=== PATIENT | female | born 2000 | race Caucasian/White ===

== ENCOUNTER 2019-06-02 11:10 | Emergency (ER) | payer MEDICAID ==
[~2019-06-02] VITALS: Ht 156.2 cm; Wt 68.9 kg
[2019-06-02 11:14] VITALS: BP 114/56
--- NOTE | 2019-06-02 11:19 | NUR ---
PT AMB TO BED 4 WITH STEADY GAIT
--- NOTE | 2019-06-02 11:30 | NUR ---
PT PRESENTS TO ED WITH C/O RIGHT SIDED FLANK 10/10 PAIN X 3 DAYS. DENIES INJURY/TRAUMA. DENIES DYSURIA, FEVER OR N/V/D. AFEBRILE AT THIS TIME. VSS. ERMD TO EVALUATE PT.
--- NOTE | 2019-06-02 11:50 | NUR ---
DR WIN AT BEDSIDE
[2019-06-02] MEDS ORDERED: HYDROcodone/APAP 5/325 MG 1 TAB TAB PO ONE (11:55)
[2019-06-02] MEDS ORDERED: KETOROLAC 30 MG/ML VIAL IM ONE (11:55)
[2019-06-02 12:11] LABS: APPEARANCE,URINE CLEAR (CLEAR); BILIRUBIN,URINE NEGATIVE (NEGATIVE); BLOOD, URINE NEGATIVE (NEGATIVE); COLOR,URINE YELLOW (YELLOW); LEUKOCYTE ESTERASE ,URINE NEGATIVE (NEGATIVE); NITRITE, URINE NEGATIVE (NEGATIVE); PH,URINE 7.5 (5.0-9.0); UGLUCOSE NEGATIVE (NEGATIVE)
[2019-06-02 12:55] VITALS: BP 113/79
--- NOTE | 2019-06-02 12:55 | NUR ---
Patient discharged with v/s stable. Written and verbal after care instructions given and explained. Patient alert, oriented and verbalized understanding of instructions. Ambulatory with steady gait. All questions addressed prior to discharge. ID band removed. Patient advised to follow up with PMD. Rx of IBUPROFEN, METHOCARBAMOL given. Patient educated on indication of medication including possible reaction and side effects. Opportunity to ask questions provided and answered. PT GIVEN EXCUSE FOR WORK.
== END 2019-06-02 12:55 | disposition home or self-care (01) ==
LOC: MED 11:10
DX: M54.5 Low back pain (principal)
CPT/HCPCS: 81003; 81025; 96372; 99283; J1885

== ENCOUNTER 2022-02-04 16:00 | Observation (INO) | payer OTHER, SELFPAY ==
[~2022-02-04] VITALS: Ht 157.5 cm; Wt 81.6 kg
[2022-02-04] MEDS ORDERED: cefTRIAXone 1,000 MG in LIDOCAINE MPF 1% 2.1 ML IM SCH (18:20)
[2022-02-04] MEDS ORDERED: PRETAB PO (18:45)
== END 2022-02-04 19:05 | disposition home or self-care (01) ==
LOC: MLD 16:00
PROVIDERS: ADMIT Obstetrics & Gynecology; ATTEND Obstetrics & Gynecology
DX: O26.893 Other specified pregnancy related conditions, third trimester (principal); R10.30 Lower abdominal pain, unspecified; Z20.822 Contact with and (suspected) exposure to COVID-19; Z3A.32 32 weeks gestation of pregnancy
CPT/HCPCS: 76817; 76819; 87426; 96372; G0378; J0696; J2001; Q0092; 59025; 81000

== ENCOUNTER 2022-02-15 20:50 | Observation (INO) | payer OTHER ==
[~2022-02-15] VITALS: Ht 157.5 cm; Wt 81.2 kg
[~2022-02-15 20:50] MED LIST: PRETAB PO
[2022-02-15] MEDS ORDERED: MORPHINE SULFATE 5 MG/ML VIAL IVP PRN (21:20)
[2022-02-15] MEDS ORDERED: ONDANSETRON 4 MG/2 ML VIAL IVP PRN (21:20)
[2022-02-15] MEDS ORDERED: LACTATED RINGERS 1,000 ML IV SCH ×2 (21:20)
[2022-02-15 21:42] LABS: BASOPHILS % (AUTO) 0.3 % (0.0-2.0); EOSINOPHILS # (AUTO) 0.1 K/uL (0-0.4); EOSINOPHILS % (AUTO) 0.9 % (0.0-4.0); HEMATOCRIT 37.2 % (36-48); HEMOGLOBIN 12.6 g/dL (12.0-16.0); LYMPHOCYTES # (AUTO) 2.4 K/uL (2.5-16.5); MEAN CORPUSCULAR HEMOGLOBIN 29 pg (27-31); MEAN CORPUSCULAR HGB CONC 34 g/dL (33-37); MEAN CORPUSCULAR VOLUME 86.7 fL (80-94); MONOCYTES # (AUTO) 0.8 K/uL (0.8-1.0); MONOCYTES % (AUTO) 7.5 % (1.7-9.3); NEUTROPHILS # (AUTO) 7.1 K/uL (1.8-7.7); NEUTROPHILS % (AUTO) 68.3 % (42.2-75.2); PLATELET COUNT (AUTO) 274 K/uL (140-450); RED BLOOD CELL COUNT(AUTO) 4.29 MIL/uL (4.20-5.40); RED CELL DISTRIBUTION WIDTH 15.1 % (11.6-13.7); WHITE BLOOD COUNT (AUTO) 10.3 K/uL (4.8-10.8)
[2022-02-15 21:59] VITALS: BP 113/70
[2022-02-15 22:05] LABS: ALBUMIN 2.5 g/dL (3.4-5.0); ASPARTATE AMINOTRANSFERASE 19 U/L (15-37); CARBON DIOXIDE 23.6 mmol/L (21-32); CHLORIDE 105 mmol/L (98-107); CREATININE 0.5 mg/dL (0.6-1.3); GFR ARICAN-AMERICAN 198 mL/min (>90); GLUCOSE 99 mg/dL (74-106); POTASSIUM 3.6 mmol/L (3.5-5.1); SODIUM SERUM 136 mmol/L (136-145); TOTAL BILIRUBIN 0.3 mg/dL (0.0-1.0); UREA NITROGEN, BLOOD 8 mg/dL (7-18)
[2022-02-15 22:24] LABS: APPEARANCE,URINE CLEAR (CLEAR); BILIRUBIN,URINE NEGATIVE (NEGATIVE); BLOOD, URINE NEGATIVE (NEGATIVE); COLOR,URINE YELLOW (YELLOW); LEUKOCYTE ESTERASE ,URINE 1+ (NEGATIVE); NITRITE, URINE NEGATIVE (NEGATIVE); UGLUCOSE NEGATIVE (NEGATIVE)
[2022-02-15 22:38] LABS: RBC,URINE 0-5 /HPF (0-5)
== END 2022-02-15 23:20 | disposition home or self-care (01) ==
LOC: MLD 20:50
PROVIDERS: ADMIT Obstetrics & Gynecology; ATTEND Obstetrics & Gynecology
DX: O62.9 Abnormality of forces of labor, unspecified (principal); Z3A.34 34 weeks gestation of pregnancy
CPT/HCPCS: 36415; 59025; 76805; 76817; 80053; 81001; 82731; 85025; 87086; 96360; G0378; G0379; J7120; Q0092

== ENCOUNTER 2022-02-19 22:13 | Inpatient (IN) | payer OTHER ==
[~2022-02-19] VITALS: Ht 157.5 cm; Wt 81.6 kg
[2022-02-19] MEDS ORDERED: BETAMETH ACET/BETAMETH NA PH 30 MG/5 ML VIAL IM SCH (22:50)
[2022-02-19] MEDS ORDERED: NALBUPHINE 10 MG/ML AMP IVP PRN (22:50)
[2022-02-19] MEDS ORDERED: AMPICILLIN 2,000 MG in NACL 0.9% MINI-BAG PLUS 100 ML IV SCH (22:50)
[2022-02-19] MEDS ORDERED: PROMETHAZINE 25 MG/ML VIAL IVP PRN (22:50)
[2022-02-19] MEDS ORDERED: PNV91TAB8 PO (22:50)
[2022-02-19] MEDS ORDERED: AMPICILLIN 2,000 MG VIAL ONE (23:22)
[2022-02-19] MEDS: LACTATED RINGERS 1,000 ML IV SCH (23:34)
[2022-02-19 23:41] LABS: BASOPHILS % (AUTO) 0.2 % (0.0-2.0); EOSINOPHILS # (AUTO) 0.1 K/uL (0-0.4); EOSINOPHILS % (AUTO) 0.8 % (0.0-4.0); HEMATOCRIT 36.4 % (36-48); HEMOGLOBIN 12.2 g/dL (12.0-16.0); LYMPHOCYTES # (AUTO) 2.5 K/uL (2.5-16.5); MEAN CORPUSCULAR HEMOGLOBIN 29 pg (27-31); MEAN CORPUSCULAR HGB CONC 34 g/dL (33-37); MEAN CORPUSCULAR VOLUME 87.7 fL (80-94); MONOCYTES # (AUTO) 0.7 K/uL (0.8-1.0); MONOCYTES % (AUTO) 7.4 % (1.7-9.3); NEUTROPHILS # (AUTO) 6.6 K/uL (1.8-7.7); NEUTROPHILS % (AUTO) 66.6 % (42.2-75.2); PLATELET COUNT (AUTO) 294 K/uL (140-450); RED BLOOD CELL COUNT(AUTO) 4.15 MIL/uL (4.20-5.40); WHITE BLOOD COUNT (AUTO) 9.9 K/uL (4.8-10.8)
[2022-02-19 23:45] LABS: APPEARANCE,URINE CLEAR (CLEAR); BILIRUBIN,URINE NEGATIVE (NEGATIVE); BLOOD, URINE NEGATIVE (NEGATIVE); COLOR,URINE YELLOW (YELLOW); LEUKOCYTE ESTERASE ,URINE NEGATIVE (NEGATIVE); NITRITE, URINE NEGATIVE (NEGATIVE); PH,URINE 7.5 (5.0-9.0); UGLUCOSE NEGATIVE (NEGATIVE)
[2022-02-20 00:09] LABS: ALBUMIN 2.4 g/dL (3.4-5.0); ANION GAP 10.1 (8-16); CARBON DIOXIDE 25.7 mmol/L (21-32); CREATININE 0.8 mg/dL (0.6-1.3); POTASSIUM 3.8 mmol/L (3.5-5.1); TOTAL BILIRUBIN 0.3 mg/dL (0.0-1.0)
[2022-02-20 00:18] LABS: BARBITURATE, URINE NEGATIVE ng/ml (NEG <=200); BENZODIAZEPINE, URINE NEGATIVE ng/mL (NEG <=200); CANNABINOID, URINE NEGATIVE ng/mL (NEG <=50); COCAINE, URINE NEGATIVE ng/mL (NEG <=300); OPIATE, URINE NEGATIVE ng/mL (NEG <=2000); PHENCYCLIDINE SCREEN,URINE NEGATIVE ng/mL (NEG <=25)
[2022-02-20] MEDS ORDERED: AMPICILLIN 1,000 MG VIAL ONE ×2 (03:43→07:30)
[2022-02-20] MEDS: AMPICILLIN 1,000 MG in NACL 0.9% MINI-BAG PLUS 50 ML IV SCH ×2 (03:45→07:52)
--- NOTE | 2022-02-20 06:46 | NUR ---
PATIENT HAS BEEN SCREENED AND CATEGORIZED LOW NUTRITION RISK. PATIENT WILL BE SEEN WITHIN 7 DAYS OF ADMISSION. 02/27/22 PATRICK ACKERMAN MS, RDN
[2022-02-20] MEDS: LACTATED RINGERS 1,000 ML IV SCH (08:02)
[2022-02-20] MEDS ORDERED: PNV91TAB8 PO (22:11)
== END 2022-02-20 11:15 | disposition home or self-care (01) | DRG 566 ==
LOC: MFCC 22:13 → OBSVTOIN 23:00
PROVIDERS: ADMIT Obstetrics & Gynecology; ATTEND Obstetrics & Gynecology
DX: O42.913 Preterm premature rupture of membranes, unspecified as to length of time between rupture and onset of labor, third trimester (principal); Z20.822 Contact with and (suspected) exposure to COVID-19; Z3A.34 34 weeks gestation of pregnancy
CPT/HCPCS: 36415; 76815; 80053; 80305; 81003; 85025; 86592; 86886; 86900; 86901; 87340; J0290; J0702; Q0092

== ENCOUNTER 2022-02-20 21:54 | Observation (INO) | payer OTHER ==
[~2022-02-20] VITALS: Ht 157.5 cm; Wt 81.6 kg
[~2022-02-20 21:54] MED LIST changes: +PNV91TAB8 PO
[2022-02-20] MEDS ORDERED: PNV91TAB8 PO (22:11)
[2022-02-20] MEDS ORDERED: BETAMETH ACET/BETAMETH NA PH 30 MG/5 ML VIAL IM SCH (22:15)
== END 2022-02-20 22:33 | disposition home or self-care (01) ==
LOC: MLD 21:54
PROVIDERS: ADMIT Obstetrics & Gynecology; ATTEND Obstetrics & Gynecology
DX: O42.913 Preterm premature rupture of membranes, unspecified as to length of time between rupture and onset of labor, third trimester (principal); O62.9 Abnormality of forces of labor, unspecified; Z3A.34 34 weeks gestation of pregnancy
CPT/HCPCS: 59025; 96372; G0378; G0379; J0702

== ENCOUNTER 2022-03-12 16:51 | Inpatient (IN) | payer OTHER ==
[~2022-03-12] VITALS: Ht 154.9 cm; Wt 82.1 kg
[2022-03-12] MEDS ORDERED: LACTATED RINGERS 500 ML IV SCH (17:15)
[2022-03-12] MEDS ORDERED: LACTATED RINGERS 1,000 ML IV SCH (17:15)
[2022-03-12] MEDS ORDERED: METHYLERGONOVINE 0.2 MG/ML AMP IM PRN (17:15)
[2022-03-12] MEDS ORDERED: CARBOPROST 250 MCG/ML AMP IM PRN (17:15)
[2022-03-12 18:27] VITALS: BP 119/65
[2022-03-12 18:33] LABS: BASOPHILS % (AUTO) 0.5 % (0.0-2.0); EOSINOPHILS # (AUTO) 0.1 K/uL (0-0.4); EOSINOPHILS % (AUTO) 0.5 % (0.0-4.0); HEMATOCRIT 38.8 % (36-48); HEMOGLOBIN 12.8 g/dL (12.0-16.0); LYMPHOCYTES # (AUTO) 2.3 K/uL (2.5-16.5); LYMPHOCYTES % (AUTO) 24.3 % (20.5-51.1); MEAN CORPUSCULAR HEMOGLOBIN 29 pg (27-31); MEAN CORPUSCULAR HGB CONC 33 g/dL (33-37); MEAN CORPUSCULAR VOLUME 88.1 fL (80-94); MONOCYTES # (AUTO) 0.6 K/uL (0.8-1.0); MONOCYTES % (AUTO) 6.4 % (1.7-9.3); NEUTROPHILS # (AUTO) 6.3 K/uL (1.8-7.7); NEUTROPHILS % (AUTO) 68.3 % (42.2-75.2); PLATELET COUNT (AUTO) 252 K/uL (140-450); RED CELL DISTRIBUTION WIDTH 16.3 % (11.6-13.7); WHITE BLOOD COUNT (AUTO) 9.3 K/uL (4.8-10.8)
[2022-03-12 18:52] LABS: PROTHROMBIN TIME 9.9 secs (10.8-13.4)
[2022-03-12 18:54] LABS: ALBUMIN 2.5 g/dL (3.4-5.0); ANION GAP 13.1 (8-16); CARBON DIOXIDE 22.8 mmol/L (21-32); CREATININE 0.5 mg/dL (0.6-1.3); POTASSIUM 3.9 mmol/L (3.5-5.1); TOTAL BILIRUBIN 0.3 mg/dL (0.0-1.0)
[2022-03-12] MEDS: MISOPROSTOL 25 MCG TAB VG SCH (20:15)
[2022-03-12 20:48] LABS: BILIRUBIN,URINE NEGATIVE (NEGATIVE); BLOOD, URINE NEGATIVE (NEGATIVE); COLOR,URINE YELLOW (YELLOW); LEUKOCYTE ESTERASE ,URINE TRACE (NEGATIVE); NITRITE, URINE NEGATIVE (NEGATIVE); PH,URINE 7.5 (5.0-9.0); UGLUCOSE NEGATIVE (NEGATIVE)
[2022-03-12 20:56] LABS: APPEARANCE,URINE HAZY (CLEAR)
[2022-03-12 21:22] LABS: RBC,URINE NONE SEEN /HPF (0-5); WBC,URINE 0-5 /HPF (0-5)
[2022-03-13] MEDS: MISOPROSTOL 25 MCG TAB VG SCH ×2 (07:37→13:55)
[2022-03-13] MEDS ORDERED: ACETAMINOPHEN 325 MG TAB PO PRN (15:05)
[2022-03-13] MEDS ORDERED: ACETAMINOPHEN 325 MG TAB ONE (15:08)
--- NOTE | 2022-03-14 08:03 | NUR ---
PATIENT HAS BEEN SCREENED AND CATEGORIZED LOW NUTRITION RISK. PATIENT WILL BE SEEN WITHIN 7 DAYS OF ADMISSION. 03/14/22-03/20/[address]
== END 2022-03-13 19:35 | disposition home or self-care (01) | DRG 566 ==
LOC: MLD 16:51
PROVIDERS: ADMIT Obstetrics & Gynecology; ATTEND Obstetrics & Gynecology
PROC: 3E0P7VZ Introduction of Hormone into Female Reproductive, Via Natural or Artificial Opening (ICD-10-PCS; principal; 2022-03-12)
DX: O41.03X0 Oligohydramnios, third trimester, not applicable or unspecified (principal); Z20.822 Contact with and (suspected) exposure to COVID-19; Z3A.37 37 weeks gestation of pregnancy
CPT/HCPCS: 36415; 76815; 80053; 81001; 85025; 85610; 85730; 86592; 86886; 86900; 86901; Q0092

== ENCOUNTER 2022-03-15 09:38 | Inpatient (IN) | payer OTHER ==
[~2022-03-15] VITALS: Ht 157.5 cm; Wt 82.1 kg
[~2022-03-15 09:38] MED LIST changes: -PNV91TAB8 PO
[2022-03-15] MEDS ORDERED: METHYLERGONOVINE 0.2 MG/ML AMP IM PRN (09:55)
[2022-03-15] MEDS ORDERED: CARBOPROST 250 MCG/ML AMP IM PRN (09:55)
[2022-03-15] MEDS ORDERED: LACTATED RINGERS 500 ML IV ONE (09:55)
[2022-03-15 10:00] VITALS: BP 98/59
[2022-03-15] MEDS ORDERED: MISOPROSTOL 25 MCG TAB VG SCH (12:00)
[2022-03-15] MEDS: LACTATED RINGERS 1,000 ML IV SCH ×2 (12:01→19:22)
[2022-03-15 12:20] LABS: PROTHROMBIN TIME 9.9 secs (10.8-13.4)
[2022-03-15 12:22] LABS: BASOPHILS % (AUTO) 0.3 % (0.0-2.0); EOSINOPHILS # (AUTO) 0.1 K/uL (0-0.4); EOSINOPHILS % (AUTO) 0.9 % (0.0-4.0); HEMOGLOBIN 12.4 g/dL (12.0-16.0); LYMPHOCYTES % (AUTO) 26.7 % (20.5-51.1); MEAN CORPUSCULAR HEMOGLOBIN 29 pg (27-31); MEAN CORPUSCULAR HGB CONC 34 g/dL (33-37); MEAN CORPUSCULAR VOLUME 87.7 fL (80-94); MONOCYTES # (AUTO) 0.5 K/uL (0.8-1.0); MONOCYTES % (AUTO) 6.3 % (1.7-9.3); NEUTROPHILS % (AUTO) 65.8 % (42.2-75.2); PLATELET COUNT (AUTO) 268 K/uL (140-450); RED BLOOD CELL COUNT(AUTO) 4.22 MIL/uL (4.20-5.40); RED CELL DISTRIBUTION WIDTH 16.5 % (11.6-13.7); WHITE BLOOD COUNT (AUTO) 7.6 K/uL (4.8-10.8)
[2022-03-15 12:24] LABS: ALBUMIN 2.2 g/dL (3.4-5.0); ANION GAP 13.9 (8-16); CARBON DIOXIDE 23.8 mmol/L (21-32); CREATININE 0.6 mg/dL (0.6-1.3); POTASSIUM 3.7 mmol/L (3.5-5.1); TOTAL BILIRUBIN 0.3 mg/dL (0.0-1.0)
[2022-03-15 12:45] LABS: APPEARANCE,URINE SL CLOUDY (CLEAR); BILIRUBIN,URINE NEGATIVE (NEGATIVE); BLOOD, URINE NEGATIVE (NEGATIVE); COLOR,URINE YELLOW (YELLOW); LEUKOCYTE ESTERASE ,URINE NEGATIVE (NEGATIVE); NITRITE, URINE NEGATIVE (NEGATIVE); PH,URINE 6.5 (5.0-9.0); UGLUCOSE NEGATIVE (NEGATIVE)
[2022-03-15] MEDS ORDERED: OXYTOCIN 20 UNITS in LACTATED RINGERS 1,000 ML IV SCH (18:35)
[2022-03-15] MEDS ORDERED: OXYTOCIN 20 UNITS/LR PREMIX 1,000 ML IV ONE (19:00)
[2022-03-15] MEDS ORDERED: MORPHINE SULFATE 5 MG/ML VIAL IVP PRN (22:35)
[2022-03-15] MEDS ORDERED: MORPHINE SULFATE 10 MG/ML VIAL ONE (22:48)
[2022-03-15] MEDS: ONDANSETRON 4 MG/2 ML VIAL IVP PRN (22:54)
[2022-03-16] MEDS: LACTATED RINGERS 1,000 ML IV SCH ×4 (03:26→18:50)
[2022-03-16] MEDS: ONDANSETRON 4 MG/2 ML VIAL IVP PRN (08:53)
[2022-03-16] MEDS ORDERED: ROPIVACAINE 0.2%/NS PREMIX 0 ML EPI ONE (09:29)
[2022-03-16] MEDS ORDERED: fentaNYL citrate 0.05 MG/ML VIAL ONE (09:33)
[2022-03-16] MEDS ORDERED: LIDOCAINE 1% 500 MG/50 ML VIAL ONE (09:49)
[2022-03-16] MEDS ORDERED: MORPHINE SULFATE 10 MG/ML VIAL ONE (11:09)
[2022-03-16 11:13] VITALS: BP 117/69
[2022-03-16] MEDS ORDERED: LIDOCAINE/EPI MPF 2%1:200000 10 ML VIAL INJ ONE (12:07)
--- NOTE | 2022-03-16 13:23 | NUR ---
PATIENT HAS BEEN SCREENED AND CATEGORIZED LOW NUTRITION RISK. PATIENT WILL BE SEEN WITHIN 7 DAYS OF ADMISSION. 03/21/[address]
[2022-03-16] MEDS ORDERED: ACETAMINOPHEN 325 MG TAB PO PRN (21:35)
[2022-03-16] MEDS ORDERED: ACETAMINOPHEN 325 MG TAB ONE (21:40)
[2022-03-16] MEDS ORDERED: OXYTOCIN 20 UNITS/LR PREMIX 1,000 ML IV ONE (23:16)
[2022-03-16] MEDS ORDERED: ROPIVACAINE 0.2%/NS PREMIX 200 ML EPI ONE (23:16)
[2022-03-17] MEDS ORDERED: bisacodyL 5 MG TABEC PO PRN (02:05)
[2022-03-17] MEDS ORDERED: IBUPROFEN 600 MG TAB PO PRN (02:05)
[2022-03-17] MEDS ORDERED: DOCUSATE SODIUM 100 MG GELCAP PO PRN (02:05)
[2022-03-17] MEDS ORDERED: OXYTOCIN 10 UNITS/ML VIAL IM PRN (02:05)
[2022-03-17] MEDS ORDERED: BENZOCAINE/MENTHOL 20%-0.5% 60 GM CAN TP PRN (02:05)
[2022-03-17] MEDS ORDERED: SIMETHICONE 80 MG TAB.CHEW PO PRN (02:05)
[2022-03-17] MEDS ORDERED: METHYLERGONOVINE 0.2 MG/ML AMP IM PRN (02:05)
[2022-03-17] MEDS ORDERED: METHYLERGONOVINE 0.2 MG TAB PO PRN (02:05)
[2022-03-17] MEDS ORDERED: MEASLES, MUMPS, AND RUBELLA 1 VIAL SQVAC ONE (02:05)
[2022-03-17] MEDS: IBUPROFEN 800 MG TAB PO PRN ×2 (02:59→15:16)
[2022-03-17] MEDS ORDERED: oxyCODONE/APAP 5/325 MG 1 TAB TAB PO PRN (05:25)
[2022-03-18] MEDS: IBUPROFEN 800 MG TAB PO PRN (03:50)
[2022-03-18 08:01] LABS: HEMATOCRIT 29.2 % (36-48); HEMOGLOBIN 9.8 g/dL (12.0-16.0)
== END 2022-03-18 12:45 | disposition home or self-care (01) | DRG 560 ==
LOC: MLD 09:38 → MFCC 03-17 04:30
PROVIDERS: ADMIT Obstetrics & Gynecology; ATTEND Obstetrics & Gynecology
PROC: 10D07Z6 Extraction of Products of Conception, Vacuum, Via Natural or Artificial Opening (ICD-10-PCS; principal; 2022-03-17)
PROC: 3E033VJ Introduction of Other Hormone into Peripheral Vein, Percutaneous Approach (ICD-10-PCS; 2022-03-17)
PROC: 3E0R3BZ Introduction of Anesthetic Agent into Spinal Canal, Percutaneous Approach (ICD-10-PCS; 2022-03-17)
PROC: 00HU33Z Insertion of Infusion Device into Spinal Canal, Percutaneous Approach (ICD-10-PCS; 2022-03-17)
DX: O80 Encounter for full-term uncomplicated delivery (principal); Z37.0 Single live birth; D62 Acute posthemorrhagic anemia; Z3A.37 37 weeks gestation of pregnancy
CPT/HCPCS: 36415; 51702; 59200; 76815; 80053; 81003; 85018; 85025; 85610; 85730; 86886; 86900; 86901; C1758; J2001; J2270; J2405; J2590; J2795; J3010; Q0092

== ENCOUNTER 2022-09-09 18:47 | Emergency (ER) | payer OTHER ==
[~2022-09-09] VITALS: Ht 154.9 cm; Wt 77.1 kg
[2022-09-09] MEDS ORDERED: ACETAMINOPHEN 120 MG SUPP RC ONE (19:12)
[2022-09-09 19:30] VITALS: BP 105/64
--- NOTE | 2022-09-09 20:09 | NUR ---
FLU SWAB COLLECTED AND TAKEN TO LAB.
--- NOTE | 2022-09-09 20:30 | NUR ---
PT AMBULATED TO BED
--- NOTE | 2022-09-09 20:57 | NUR ---
PT MOVED TO [facility]
--- NOTE | 2022-09-09 21:09 | NUR ---
pt sent to lobby before i could assess pt. pt. was coughing and ambulatory.
--- NOTE | 2022-09-09 21:52 | NUR ---
pt cleared for discharge. at time of discharge pt not found in lobby. called number on file with no answer.
== END 2022-09-09 21:52 | disposition home or self-care (01) ==
LOC: MED 18:47
DX: J11.1 Influenza due to unidentified influenza virus with other respiratory manifestations (principal); Z79.899 Other long term (current) drug therapy
CPT/HCPCS: 99283